=== PATIENT | male | born 1990 | race Caucasian/White ===

== ENCOUNTER 2022-12-29 15:08 | Outpatient (CLI) | payer BC, SELFPAY ==
[2022-12-29 15:45] LABS: Alanine Aminotransferase 59 U/L (6-50); Albumin Level 4.5 g/dL (3.5-5.1); Alkaline Phosphatase 93 U/L (38-126); Anion Gap 7 mmol/L (8-16); Aspartate Amino Transferase 40 U/L (17-59); Bilirubin,Total 0.5 mg/dL (0.2-1.3); Blood Urea Nitrogen 11 mg/dL (9-20); CRP 0.5 mg/dL (<1.0); Calcium 8.5 mg/dL (8.4-10.2); Carbon Dioxide 26 mmol/L (22-30); Chloride 104 mmol/L (98-107); Estimated Glomerular Filt Rate > 60; Glucose 98 mg/dL (65-110); Potassium 3.9 mmol/L (3.4-5.0); Sodium 137 mmol/L (137-145)
[2022-12-29 15:56] LABS: Erythrocyte Sedimentation Rate 15 mm/hr (0-20)
[2022-12-29 16:05] LABS: Hematocrit 44.4 % (42.0-52.0); Hemoglobin 14.9 g/dL (14.0-18.0); Mean Corpuscular HGB Conc 33.6 g/dl (32-36); Mean Corpuscular Hemoglobin 28.5 pg (26-34); Mean Corpuscular Volume 85.1 fl (80-100); Mean Platelet Volume 11.2 fl (7.4-10.4); Platelet Count Result 294 k/mm3 (150-375); Red Blood Count 5.22 M/mm3 (4.6-6.20); Red Cell Distribution Width 12.8 % (11.5-14.5); White Blood Count 8.5 K/mm3 (4.5-10.0)
[2023-01-03 18:21] LABS: Gliadin AB, IgG 14.6 U/mL (<15.0); TTG IGA AB <1.0 U/mL (<15.0)
== END 2022-12-29 15:09 | disposition home or self-care (01) ==
LOC: ANHLAB 15:09
PROVIDERS: PCP Family Medicine; Visit Provider Nurse Practitioner
DX: R10.9 Unspecified abdominal pain (principal); R19.7 Diarrhea, unspecified; R19.4 Change in bowel habit
CPT/HCPCS: 36415; 80053; 84443; 85027; 85652; 86140; 86255; 86364

== ENCOUNTER 2022-12-31 07:31 | Outpatient (CLI) | payer BC, SELFPAY ==
[2023-01-08 19:50] LABS: Calprotectin, Stool 8 mcg/g
== END 2022-12-31 07:32 | disposition home or self-care (01) ==
PROVIDERS: PCP Family Medicine; Visit Provider Nurse Practitioner
DX: R10.9 Unspecified abdominal pain (principal); R19.4 Change in bowel habit; R19.7 Diarrhea, unspecified
CPT/HCPCS: 83993; 87045; 87177; 87209; 87269; 87427

== ENCOUNTER 2023-02-10 01:02 | Day surgery (SDC) | payer BC, OTHER, SELFPAY ==
[2023-01-19 13:31] VITALS: BMI 31.4
--- NOTE | 2023-02-09 15:57 | PM.HPGS ---
History of Present Illness History of Present Illness Consent: Risks, benefits, and alternatives have been discussed and questions answered. Patient agrees to proceed with procedure. Chief complaint: abdom.pain,belching,Nausea,Diarrhea,dyspepsia, Narrative: Tremayne Bautista is a 32 year old male who has been having intermittent lower abdominal cramping associated with diarrhea and occur 1-2 times per month-he states this will typically start out with increased belching and indigestion and nausea and then will turn into lower abdominal cramping and diarrhea up to 5 times per day with fecal urgency.? He will take Imodium for this which helps after the diarrhea and would take Tums for the belching and indigestion which would help but he states it no longer helps. His weight is stable. [place] with [place] times in last few years Review of Systems Review of Systems: All systems reviewed & are unremarkable except as noted in HPI and below PMFSH Past Medical History Medical History Abdominal cramping Belching symptom Chronic upper back pain Depression with anxiety Diarrhea Elevated alanine aminotransferase (ALT) level Indigestion Nausea Sleep apnea Surgical History Surgical History [place] teeth extracted (~2010) Family History Family History Mother Thyroid disorder Grandparent Diabetes mellitus Social History Social History Smoking status: Never smoker Alcohol intake: current Substance use: current Substance use type: marijuana Other substance usage details: RECREATIONAL Lack of Transportation: No Lack of Food: Never True Current Housing: I Have Housing Concerned About Future Housing: No Difficulty Paying Gas/Electric Bills: No Difficulty Paying for Meds: No Currently Unemployed: No Education: High School Diploma/GED Difficulty w/ Childcare or Family Care: No Living arrangements: alone Occupation/Education: occupation Additional occupation/education comments: [employer] Gender identity (if verbalized by the patient): Male Sexual Orientation (if Verbalized by the Patient): Straight or Heterosexual Spiritual care concerns: No Meds Home Medications and Allergies Home Medications Medication Instructions Recorded Confirmed Type dicyclomine 10 mg capsule 10 mg PO .every 6 hours PRN 04/18/23 05/09/23 Rx abdominal pain #30 caps Allergies Allergy/AdvReac Type Severity Reaction Status Date / Time No Known Allergies Allergy Mild Verified 02/10/23 07:55 Exam Const: General: alert Orientation/consciousness: patient oriented x3 Resp: Auscultation: clear to auscultation bilaterally Cardio: Rhythm: regular rhythm GI: GI Palp: Yes Soft to palpation and No Tenderness to palpation present (GI) Neuro: General: patient oriented x3 Results Results Additional studies: EGD with possible biopsy or dilatation or cautery. Assessment and Plan Assessment and plan (1) Nausea: Code(s): R11.0 - Nausea Status: Acute Assessment and Plan: EGD with possible biopsy or dilatation or cautery. (2) Change in bowel habits: Code(s): R19.4 - Change in bowel habit Status: Acute Assessment and Plan: Colonoscopy with possible biopsy or polypectomy or cautery or injection of substances.
[2023-02-10 07:57] VITALS: BP 113/73; PULSE 86; RESP 20; TEMP 36.2; O2SAT 98
[2023-02-10] MEDS: LACTATED RINGERS 1,000 ML 150 ML IV CONT (08:01)
--- NOTE | 2023-02-10 08:46 | WPDANESEPPF ---
Anes - Initial Pre Proc Eval Procedure: Operation Date: 02/10/23 09:15 Proposed Procedures p Esophagogastroduodenoscopy & Colonoscopy - Tom Mahmood MD Date/Time: 02/10/23 08:46 Surgeon: Tom Mahmood MD Pre Op Diagnosis: abdom.pain,belching,Nausea,Diarrhea,dyspepsia, Patient Data Age: 32 Gender: M Height: 1.93 m Weight: 111.7 kg Last Vital Signs Temp 97.2 F L 02/10/23 07:57 Pulse 86 02/10/23 07:57 Resp 20 02/10/23 07:57 BP 113/73 02/10/23 07:57 Pulse Ox 98 02/10/23 07:57 O2 Del Method Room Air 02/10/23 07:57 Allergies Allergy/AdvReac Type Severity Reaction Status Date / Time No Known Allergies Allergy Mild Verified 02/10/23 07:55 Home Medications Medication Instructions Recorded Confirmed Type dicyclomine 10 mg capsule 10 mg PO .every 6 hours PRN 12/29/22 01/19/23 Rx abdominal pain #30 caps Patient hx anesthesia problems: none Family hx anesthesia problems: none Results Review: All pre-operative results and documents have been reviewed as part of the pre-operative evaluation. [facility] Past Medical History Medical History (Updated 12/30/22 @ 13:14 by Shahla Benavides APRN) Abdominal cramping Belching symptom Chronic upper back pain Depression with anxiety Diarrhea Elevated alanine aminotransferase (ALT) level Indigestion Nausea Sleep apnea Surgical History Surgical History [place] teeth extracted (~2010) Family History Family History Mother Thyroid disorder Grandparent Diabetes mellitus Social History Social History Smoking status: Never smoker Alcohol intake: current Substance use: current Substance use type: marijuana Other substance usage details: RECREATIONAL Lack of Transportation: No Lack of Food: Never True Current Housing: I Have Housing Concerned About Future Housing: No Difficulty Paying Gas/Electric Bills: No Difficulty Paying for Meds: No Currently Unemployed: No Education: High School Diploma/GED Difficulty w/ Childcare or Family Care: No Living arrangements: alone Occupation/Education: occupation Additional occupation/education comments: [employer] [place] Gender identity (if verbalized by the patient): Male Sexual Orientation (if Verbalized by the Patient): Straight or Heterosexual Spiritual care concerns: No Anes - Eval Final PreProcedure Day of Procedure 02/10/23 08:46 Patient weight: normal Heart: regular rate and rhythm Lungs: clear to auscultation Airway: Mallampati scale class II Neurological: alert and oriented Last oral intake: >/= 8 hours ASA classification: II Emergent: no Anesthetic plan: proceed Anesthesia type and monitoring: general GIVS and standard monitoring Results Review: All pre-operative results and documents have been reviewed as part of the pre-operative evaluation. Informed Consent: The patient's anesthetic plan and its attendant risks and benefits were discussed with the patient/family/POA. Questions were solicited and answers provided to the satisfaction of the patient/family/POA.
--- NOTE | 2023-02-10 09:24 | SUR.OPER ---
EGD started at 911 and ended at 916. Colonoscopy began at 924.
[2023-02-10 09:43] VITALS: BP 99/67; PULSE 75; RESP 17; O2SAT 96
[2023-02-10 09:53] VITALS: BP 115/82; PULSE 68; RESP 15; O2SAT 97
[2023-02-10 10:03] VITALS: BP 117/76; PULSE 74; RESP 18; O2SAT 99
== END 2023-02-10 10:30 | disposition home or self-care (01) ==
PROVIDERS: PCP Family Medicine; Visit Provider Internal Medicine Gastroenterology
PROC: 0DJ08ZZ Inspection of Upper Intestinal Tract, Via Natural or Artificial Opening Endoscopic (ICD-10-PCS; CPT 43235; principal; 2023-02-10 09:15)
DX: R19.7 Diarrhea, unspecified (principal); K21.9 Gastro-esophageal reflux disease without esophagitis; G47.30 Sleep apnea, unspecified; F12.90 Cannabis use, unspecified, uncomplicated
CPT/HCPCS: 45378; 43239; 87081; 88305; J2001; J2704; J7120

== ENCOUNTER 2023-12-15 15:28 | Outpatient (CLI) | payer BC, OTHER, SELFPAY ==
[2023-12-15 20:51] LABS: Influenza A QL RT-PCR Negative (Negative); Influenza B QL RT-PCR Negative (Negative); RSV RNA, RT-PCR Negative (Negative); SARS-CoV-2 RNA PCR Negative (Negative)
== END 2023-12-15 15:29 | disposition home or self-care (01) ==
LOC: ANHGOSHLAB 15:30
PROVIDERS: PCP Family Medicine; Visit Provider Family Medicine
DX: J06.9 Acute upper respiratory infection, unspecified (principal); Z20.822 Contact with and (suspected) exposure to COVID-19
CPT/HCPCS: 87637